=== PATIENT | female | born 1935 | race African-American/Black ===

== ENCOUNTER 2018-11-09 18:02 | Inpatient (IN) | payer MEDICARE, MEDICAID ==
[~2018-11-09] VITALS: Ht 162.6 cm; Wt 41.3 kg
--- NOTE | 2018-11-09 18:10 | NUR ---
ED Nurse Note: Patient brought in to ER by ambulance from [facility] due to respiratory distress. per EMS, pt arrived at [facility] from [facility] 1 hour ago and pt had respiratory distress at SNF which was O2 sat 88% and labored breathing. pt aao x1 and bedbound. Lt lower qudrant G-tube and Rt upper chest dialysis catheter and Lt upper arm PICC line with 3 lumen noted. skin will be checked after orders carried out.
[2018-11-09 18:25] VITALS: BP 103/76
[2018-11-09] MEDS ORDERED: Albuterol/Ipratropium 3ml neb HHN ONE (18:30)
--- NOTE | 2018-11-09 18:30 | NUR ---
ED Nurse Note: Called Olivia Martin for POLST - reported that "there is no POLST."
--- NOTE | 2018-11-09 18:33 | Emergency Room Report ---
History of Present Illness General Chief Complaint: Dyspnea/Respdistress Source: Patient, Medical Record, EMS Present Illness HPI Patient was recently discharged from the hospital. She was back at the [facility] facility for one hour and her oxygen saturation was 89% at that time. Paramedics were called and she was transported here. The patient does complain about chest pain and some shortness of breath. She's a variable historian. She denies any abdominal pain. She states she does not make urine because she is on dialysis at this time. She denies headache or weakness. Apparently the patient is a DO NOT RESUSCITATE status at this time. However, after discussion with Dr. Araya, he states patient is OK to intubate. Recent several month hospitalization at [facility]. Records unavailable Allergies: Coded Allergies: No Known Allergies (Unverified , 11/09/18) Patient History Limited by: medical condition Past Medical History: see triage record Past Surgical History: other - Vascath Social History Narrative SNF Reviewed Nursing Documentation: PMH: Agreed; PSxH: Agreed Nursing Documentation-PMH Hx Hypertension: Yes Hx Diabetes: Yes - esrd Hx Dialysis: Yes - encephalopathy Hx Cerebrovascular Accident: Yes - dysphagia Hx Seizures: Yes Review of Systems All Other Systems: limited Physical Exam Vital Signs Date Time Temp Pulse Resp B/P (MAP) Pulse Ox O2 Delivery O2 Flow Rate FiO2 11/09/18 17:55 97.5 86 24 96 Nasal Cannula Sp02 EP Interpretation: reviewed, abnormal - intepreted as low by me General Appearance: alert, moderate distress, thin, Chronically Ill Head: normocephalic, atraumatic Eyes: bilateral eye other - dysconjugate gaze with opacities bilat ENT: moist mucus membranes Neck: supple Respiratory: no wheezing, respiratory distress, decreased breath sounds, accessory muscle use, rales, other - Vascular access R Cardiovascular #1: regular rate, rhythm, JVD, edema - trace bilat LE Cardiovascular #2: 2+ radial (R) Gastrointestinal: normal inspection, non tender, no mass, non-distended, decreased bowel sounds Musculoskeletal: back normal, normal range of motion, no calf tenderness Neurologic: alert, motor weakness - generalized, oriented - X2 Psychiatric: depressed affect Skin: normal inspection, warm/dry Procedures Critical Care Time Critical Care Time Total Critical Care Time: 30 min bedside evaluation and treatment excludes procedures (EKG). Reason for critical care: Respiratory failure, repeat evaluations, discussion with primary doctors, anemia Possible complications: hypotension, hypertension, OH, shock, arrhythmias, metabolic acidosis, end organ damage, respiratory failure. Interventions: BiPAP, repeat evaluations, discussion with physicians about level of care, discussion regarding blood transfusions Course: Patient presented with hypoxia and respiratory distress. Placed on BiPAP. Breathing treatment administered. Improvement with this with respiratory work. Discussion with several doctors regarding admission. Patient improved on BiPAP. Blood gas determines patient not needing intubation immediately. Discussion of the need for emergent dialysis. Holding blood transfusions until dialysis as pulmonary edema felt to be primary source of dyspnea. Patient improved. Consultations: nursing staff, EMS, PMDs, respiratory therapy Performed by: Dr. Uribe Tolerated well condition = critical Medical Decision Making Diagnostic Impression: Primary Impression: Respiratory distress Additional Impressions: Hypoxia ESRD (end stage renal disease) on dialysis Pulmonary edema Qualified Codes: J81.0 - Acute pulmonary edema Pleural effusion, left Anemia Qualified Codes: N18.6 - End stage renal disease; D63.1 - Anemia in chronic kidney disease; Z99.2 - Dependence on renal dialysis ER Course Patient presents with hypoxia and increased work with breathing. Differential includes acute myocardial infarction, pneumonia, COPD exacerbation, pulmonary edema from renal failure amongst others. The patient needs to be on BiPAP. In addition she'll have evaluation with EKG, chest x-ray and labs including blood cultures and lactate. Because of the renal failure her vitals are stable at the moment and she does not need to have fluid resuscitation. She will also receive a DuoNeb treatment at this time. We will evaluate carefully whether the patient needs antibiotics. EKG without injury. Chest x-ray pulmonary edema with large left-sided effusion and cardiomegaly. Labs with significant anemia. Renal failure without hyperkalemia. Patient improved on BiPAP but still with work of breathing. Discussion with dialysis doctor and admitting physician. The latter states that she is able to be intubated if necessary. Therefore blood gases obtained.. Blood gas reveals patient with mild acidosis, both respiratory and metabolic. Respiratory difficulty felt to be due to pulmonary edema. Blood transfusions held as the most likely with make this condition worse. Although the patient has mild leukocytosis she is afebrile at this time. There is no productive cough. There is no infectious etiology identified. Antibiotics are not administered at this time. Patient with less respiratory difficulty on BiPAP. She is vocalizing and responsive. At this time intubation is not indicated. Patient admitted to stepdown unit. Laboratory Tests Test 11/09/18 18:55 11/09/18 19:05 11/09/18 21:52 White Blood Count 11.9 K/UL (4.8-10.8) H Red Blood Count 2.73 M/UL (4.20-5.40) L Hemoglobin 6.8 G/DL (12.0-16.0) *L Hematocrit 22.0 % (37.0-47.0) L Mean Corpuscular Volume 80 FL (80-99) Mean Corpuscular Hemoglobin 24.9 PG (27.0-31.0) L Mean Corpuscular Hemoglobin Concent 30.9 G/DL (32.0-36.0) L Red Cell Distribution Width 17.3 % (11.6-14.8) H Platelet Count 414 K/UL (150-450) Mean Platelet Volume 6.5 FL (6.5-10.1) Neutrophils (%) (Auto) % (45.0-75.0) Lymphocytes (%) (Auto) % (20.0-45.0) Monocytes (%) (Auto) % (1.0-10.0) Eosinophils (%) (Auto) % (0.0-3.0) Basophils (%) (Auto) % (0.0-2.0) Differential Total Cells Counted 100 Neutrophils % (Manual) 80 % (45-75) H Lymphocytes % (Manual) 8 % (20-45) L Monocytes % (Manual) 8 % (1-10) Eosinophils % (Manual) 1 % (0-3) Basophils % (Manual) 3 % (0-2) H Band Neutrophils 0 % (0-8) Nucleated Red Blood Cells 1 /100 WBC Platelet Estimate Adequate Platelet Morphology Normal Polychromasia 1+ Hypochromasia 2+ Anisocytosis 1+ Microcytosis 1+ Sodium Level 129 MMOL/L (136-145) L Potassium Level 4.6 MMOL/L (3.5-5.1) Chloride Level 93 MMOL/L (98-107) L Carbon Dioxide Level 24 MMOL/L (21-32) Anion Gap 12 mmol/L (5-15) Blood Urea Nitrogen 83 mg/dL (7-18) H Creatinine 2.7 MG/DL (0.55-1.30) H Estimate Glomerular Filtration Rate mL/min (>60) Glucose Level 111 MG/DL (74-106) H Lactic Acid Level 0.70 mmol/L (0.4-2.0) Calcium Level 9.8 MG/DL (8.5-10.1) Magnesium Level 2.6 MG/DL (1.8-2.4) H Total Bilirubin 0.2 MG/DL (0.2-1.0) Aspartate Amino Transferase (AST) 17 U/L (15-37) Alanine Aminotransferase (ALT) 24 U/L (12-78) Alkaline Phosphatase 420 U/L (46-116) H Total Creatine Kinase 34 U/L (26-308) Troponin I 0.000 ng/mL (0.000-0.056) Pro-B-Type Natriuretic Peptide 85377 pg/mL (0-125) H Total Protein 8.2 G/DL (6.4-8.2) Albumin 2.5 G/DL (3.4-5.0) L Globulin 5.7 g/dL Albumin/Globulin Ratio 0.4 (1.0-2.7) L Prothrombin Time 10.4 SEC (9.30-11.50) Prothrombin Time INR 1.0 (0.9-1.1) PTT 31 SEC (23-33) Arterial Blood pH 7.308 (7.350-7.450) Arterial Blood Partial Pressure CO2 44.5 mmHg (35.0-45.0) Arterial Blood Partial Pressure O2 95.5 mmHg (75.0-100.0) Arterial Blood HCO3 21.8 mmol/L (22.0-26.0) L Arterial Blood Oxygen Saturation 96.9 % (95-100) Arterial Blood Base Excess -4.2 (-2-2) L Cal Test Positive EKG Diagnostic Results Rate: normal Rhythm: NSR ST Segments: no acute changes - LAE, LVH, LAD Rhythm Strip Diag. Results EP Interpretation: yes Rhythm: NSR, no PVC's, no ectopy Chest X-Ray Diagnostic Results Chest X-Ray Diagnostic Results : Chest X-Ray Ordered: Yes # of Views/Limited/Complete: 1 View Indication: Shortness of Breath EP Interpretation: Yes Interpretation: no pneumothorax, other - L effusion, pulm edema, R vas cath Last Vital Signs Date Time Temp Pulse Resp B/P (MAP) Pulse Ox O2 Delivery O2 Flow Rate FiO2 11/10/18 01:10 74 20 100 Facial 30 11/10/18 00:00 97.5 126/65 (85) Status: improved Disposition: ADMITTED INPATIENT Condition: Serious Petey Uribe MD November 09, 2018 18:33
--- NOTE | 2018-11-09 18:39 | NUR ---
ED Nurse Note: Bipap applied per ERMD's order by RT.
--- NOTE | 2018-11-09 18:49 | NUR ---
RESPIRATORY NOTE: Called to ED to place this pt on BiPAP per MD Rony. Pt awake/needed reinforcement to follow commands. Pt WOB is increased, vitals w/in normal limits, spO2 98% on RA. Pt now on BiPAP 15/5, backup rate 14, 30%. Pt on a Facial mask, skin intact, no redness/breakdowns prior to placing mask. Foam tape applied on pt's nosebridge/cheeks/chin to prevent any mask irritations. B/S marisol. rales/rhonchi, nonproductive cough. BiPAP plugged into red outlet. Pt currently getting breathing tx. Pt tolerating tx well. Will continue to monitor pt.
[2018-11-09 19:06] LABS: MEAN CORPUSCULAR VOLUME 80 FL (80-99); PLATELET COUNT 414 K/UL (150-450); RED BLOOD COUNT 2.73 M/UL (4.20-5.40); RED CELL DISTRIBUTION WIDTH 17.3 % (11.6-14.8); WHITE BLOOD COUNT 11.9 K/UL (4.8-10.8)
[2018-11-09 19:10] LABS: HEMOGLOBIN 6.8 G/DL (12.0-16.0)
[2018-11-09 19:18] LABS: ANION GAP 12 mmol/L (5-15); BLOOD UREA NITROGEN 83 mg/dL (7-18); CALCIUM 9.8 MG/DL (8.5-10.1); CARBON DIOXIDE 24 MMOL/L (21-32); CHLORIDE 93 MMOL/L (98-107); CREATININE 2.7 MG/DL (0.55-1.30); POTASSIUM 4.6 MMOL/L (3.5-5.1); SODIUM 129 MMOL/L (136-145)
--- NOTE | 2018-11-09 19:22 | NUR ---
HAND-OFF: Report given to CORNELL Alcantara. Skin check and urin sample collect were endorsed.
[2018-11-09 19:29] LABS: ALANINE AMINOTRANSFERASE 24 U/L (12-78); ALBUMIN 2.5 G/DL (3.4-5.0); ALBUMIN/GLOBULIN RATIO 0.4 (1.0-2.7); ALKALINE PHOSPHATASE 420 U/L (46-116); ASPARTATE AMINO TRANSFERASE 17 U/L (15-37); BILIRUBIN,TOTAL 0.2 MG/DL (0.2-1.0); CREATINE KINASE 34 U/L (26-308)
--- NOTE | 2018-11-09 19:30 | NUR ---
ED Nurse Note: RECIEVED REPORT FROM AM NURSE TO RESUME CARE, PT IN BED RESTING QUIETLY, AWKE, NON-COMPREHENSIBLE SOUNDS MADE, ON CARDIAC MONITORING AND BIPAP, PT IS L RAFAEL IN CONTRACTED LIKE POSITION, WILL RESUME CARE ORDERED AND PREAPER FOR HOSPITAL ADMISSION.
[2018-11-09 20:00] VITALS: BP 115/47
--- NOTE | 2018-11-09 21:00 | NUR ---
ED Nurse Note: PT CONTINUES TO REST IN BED, PT RE-POSITIONED AND TURNED WITH PILLOWS, PT NOTED WITH BEDSORES ON RIGHT INNER FOOT AREA, AND SACRYL AREA, PHOTOS TAKEN, MD NOTIFIED, SWABS FOR ADMISSION DONE, WILL CONTINUE TO MONITOR WHILE WAITING FOR ROOM FOR ADMISSION.
--- NOTE | 2018-11-09 21:45 | NUR ---
ED Nurse Note: RESPIRATORY AT BEDSIDE COMPLETING ABG, WILL SEND TO FLOOR BED WHEN DONE AND MD AGREES ABG RESULTS ARE OK, PT TOLEARATING BIPAP WELL, O2 SAT=99% ON RA.
[2018-11-09] MEDS ORDERED: Piperacillin/Tazobactam 3.375 GM in NS 110 ML IVPB SCH (22:00)
--- NOTE | 2018-11-09 22:35 | NUR ---
ED Nurse Note: Called Olivia Martin for med record, in order to do med recon.
--- NOTE | 2018-11-09 23:10 | NUR ---
NURSE NOTES: Received report over the phone from MaricruzER nurse.Patient stable to transfer to the floor,no s/s of pain,no respiratory distress at this moment,SR on registered nurse cardiac telemetry,tolerated BiPAP setting 15/5 FiO2 30% well,GT clumped,BS active in all quadrants,wound pictures done and uploaded,IV on YESSICA PICC asymptomatic,intact,last dressing changed 11/05/18,Permacath in R chest for dialyses.Has order for blood transfusion,held until dialysis as per MD order.ER provided breathing treatment,Sat O2 95%.Waiting patient on a floor.
--- NOTE | 2018-11-09 23:20 | NUR ---
NURSE NOTES: Patient transferred to the floor by vanesa,no respiratory distress noted,belongings list signed for no belongings
--- NOTE | 2018-11-09 23:30 | NUR ---
NURSE NOTES: Called and left massage to confirm blood transfusion order.Waiting for respond,charge nurse aware.
[2018-11-10] VITALS: BP 126/65
[2018-11-10] MEDS ORDERED: Vancomycin 1.5gm Premix IVPB ONE
--- NOTE | 2018-11-10 00:01 | NUR ---
NURSE NOTES: Spoke with Mariaelena at [facility] dialysis center to schedule HD for patient today (11/10) per Dr. Alcazar's orders.
[2018-11-10] MEDS ORDERED: [UNRECOGNIZED DRUG - OTHER] IVPB (00:02)
[2018-11-10] MEDS ORDERED: AMLODIPINE BESY10 MG GT (00:02)
[2018-11-10] MEDS ORDERED: PROTONIX40 M1 IVP (00:02)
[2018-11-10] MEDS ORDERED: ACETYLCYST100 MG/1 M INH (00:02)
[2018-11-10] MEDS ORDERED: CALCITRIOL1 MCG/1 ML GT (00:02)
[2018-11-10] MEDS ORDERED: SENNA8.6 M2 GT (00:02)
[2018-11-10] MEDS ORDERED: LEVOFLOXACIN750 MG GT (00:02)
[2018-11-10] MEDS ORDERED: ALBUTEROL2.5 MG/3 M INH (00:02)
[2018-11-10] MEDS ORDERED: VITAMIN D1000 UNI1 GT (00:02)
[2018-11-10] MEDS ORDERED: LEVETIRACETAM500 MG IVPB (00:02)
[2018-11-10] MEDS ORDERED: ASPIR 8181 MG ORAL (00:02)
[2018-11-10] MEDS ORDERED: ACETAMINOPHEN325 M1 ORAL (00:02)
[2018-11-10] MEDS ORDERED: VORICONAZOLE200 MG GT (00:02)
[2018-11-10] MEDS ORDERED: ARANESP40 MCG/0.4 SUBQ (00:02)
[2018-11-10] MEDS ORDERED: CARVEDILOL12.5 MG GT (00:02)
[2018-11-10] MEDS ORDERED: METRONIDAZOLE500 MG GT (00:02)
[2018-11-10] MEDS ORDERED: LISINOPRIL10 MG GT (00:02)
[2018-11-10] MEDS ORDERED: HEPARIN SO5000 UNIT2 SUBQ (00:02)
[2018-11-10] MEDS ORDERED: LOSARTAN POTASS50 MG GT (00:02)
[2018-11-10] MEDS ORDERED: FERROUS SULFAT325 MG GT (00:02)
[2018-11-10] MEDS ORDERED: THERA GT (00:02)
[2018-11-10] MEDS ORDERED: IPRATROPIU0.2 MG/1 M HHN (00:02)
[2018-11-10] MEDS ORDERED: DOCUSATE SODIU100 MG ORAL (00:02)
--- NOTE | 2018-11-10 01:16 | NUR ---
NURSE NOTES: 1 unit PRBC is ready for machine operator hop picker. Per ED Dr. Uribe to hold blood transfusion until after HD; awaiting Dr. Araya's confirmation. Blood unit is available for the next 72 hours.
[2018-11-10] MEDS: Zosyn 2.25 gm in D5W 55ml IV SCH ×3 (01:19→13:37)
[2018-11-10 04:00] VITALS: BP 109/54
--- NOTE | 2018-11-10 04:00 | NUR ---
NURSE NOTES: INC nurse came to start dialysis.Will continue to monitor patient.
[2018-11-10 05:18] LABS: ANION GAP 10 mmol/L (5-15); BLOOD UREA NITROGEN 87 mg/dL (7-18); CALCIUM 9.5 MG/DL (8.5-10.1); CARBON DIOXIDE 25 MMOL/L (21-32); CHLORIDE 93 MMOL/L (98-107); CREATININE 2.9 MG/DL (0.55-1.30); POTASSIUM 4.7 MMOL/L (3.5-5.1); SODIUM 128 MMOL/L (136-145)
[2018-11-10 05:28] LABS: ALANINE AMINOTRANSFERASE 22 U/L (12-78); ALBUMIN 2.4 G/DL (3.4-5.0); ALBUMIN/GLOBULIN RATIO 0.5 (1.0-2.7); ALKALINE PHOSPHATASE 365 U/L (46-116); ASPARTATE AMINO TRANSFERASE 15 U/L (15-37); BILIRUBIN,TOTAL 0.3 MG/DL (0.2-1.0)
[2018-11-10] MEDS ORDERED: Heparin Sod 1000 units/ml 10ml IV PRN (06:00)
--- NOTE | 2018-11-10 06:30 | NUR ---
NURSE NOTES: Dialysis is done,patient tolerated well, 1L taken out
--- NOTE | 2018-11-10 07:04 | Nephrology Progress Note ---
Assessment/Plan Assessment dicctated, serial hd Objective Objective Last 24 Hour Vital Signs Date Time Temp Pulse Resp B/P (MAP) Pulse Ox O2 Delivery O2 Flow Rate FiO2 11/10/18 05:13 75 22 100 Facial 30 11/10/18 04:00 97.7 70 27 109/54 (72) 100 11/10/18 04:00 30 11/10/18 04:00 Bi-pap 11/10/18 03:42 69 11/10/18 03:04 68 25 100 Facial 30 11/10/18 01:10 74 20 100 Facial 30 11/10/18 00:00 Bi-pap 11/10/18 00:00 97.5 73 20 126/65 (85) 100 11/10/18 00:00 30 11/09/18 23:36 72 11/09/18 23:00 98.1 29 115/47 100 Bi-pap 30 11/09/18 23:00 Bi-pap 11/09/18 22:41 71 29 100 Facial 30 11/09/18 20:32 72 35 100 Facial 30 11/09/18 20:00 98.1 75 23 115/47 100 Bi-pap 30 11/09/18 18:57 75 25 100 Bi-pap 30 11/09/18 18:45 77 25 100 Bi-pap 30 11/09/18 18:42 30 11/09/18 18:30 76 29 Bi-pap 30 11/09/18 18:30 76 29 100 Facial 30 11/09/18 18:25 97.5 87 24 103/76 97 Room Air 11/09/18 18:25 84 19 Room Air 11/09/18 17:55 97.5 86 24 96 Nasal Cannula Intake and Output 11/09/18 11/10/18 19:00 07:00 Intake Total 0 ml 55 ml Output Total 1000 ml Balance 0 ml -945 ml Intake Oral 0 ml IV Total 55 ml Output Hemodialysis UF 1000 ml Laboratory Tests 11/09/18 18:55: White Blood Count 11.9H, Red Blood Count 2.73L, Hemoglobin 6.8*L, Hematocrit 22.0L, Mean Corpuscular Volume 80, Mean Corpuscular Hemoglobin 24.9L, Mean Corpuscular Hemoglobin Concent 30.9L, Red Cell Distribution Width 17.3H, Platelet Count 414, Mean Platelet Volume 6.5, Neutrophils (%) (Auto) , Lymphocytes (%) (Auto) , Monocytes (%) (Auto) , Eosinophils (%) (Auto) , Basophils (%) (Auto) , Differential Total Cells Counted 100, Neutrophils % ( Manual) 80H, Lymphocytes % (Manual) 8L, Monocytes % (Manual) 8, Eosinophils % ( Manual) 1, Basophils % (Manual) 3H, Band Neutrophils 0, Nucleated Red Blood Cells 1, Platelet Estimate Adequate, Platelet Morphology Normal, Polychromasia 1 +, Hypochromasia 2+, Anisocytosis 1+, Microcytosis 1+, Sodium Level 129L, Potassium Level 4.6, Chloride Level 93L, Carbon Dioxide Level 24, Anion Gap 12, Blood Urea Nitrogen 83H, Creatinine 2.7H, Estimat Glomerular Filtration Rate , Glucose Level 111H, Lactic Acid Level 0.70, Calcium Level 9.8, Magnesium Level 2.6H, Total Bilirubin 0.2, Aspartate Amino Transf (AST/SGOT) 17, Alanine Aminotransferase (ALT/SGPT) 24, Alkaline Phosphatase 420H, Total Creatine Kinase 34, Troponin I 0.000, Pro-B-Type Natriuretic Peptide 76905U, Total Protein 8.2, Albumin 2.5L, Globulin 5.7, Albumin/Globulin Ratio 0.4L 11/09/18 19:05: Prothrombin Time 10.4, Prothromb Time International Ratio 1.0, Activated Partial Thromboplast Time 31 11/09/18 21:52: Arterial Blood pH 7.308L, Arterial Blood Partial Pressure CO2 44.5, Arterial Blood Partial Pressure O2 95.5, Arterial Blood HCO3 21.8L, Arterial Blood Oxygen Saturation 96.9, Arterial Blood Base Excess -4.2L, Cal Test Positive 11/10/18 04:00: Sodium Level 128L, Potassium Level 4.7, Chloride Level 93L, Carbon Dioxide Level 25, Anion Gap 10, Blood Urea Nitrogen 87H, Creatinine 2.9H, Estimat Glomerular Filtration Rate , Glucose Level 140H, Calcium Level 9.5, Total Bilirubin 0.3, Aspartate Amino Transf (AST/SGOT) 15, Alanine Aminotransferase ( ALT/SGPT) 22, Alkaline Phosphatase 365H, Total Protein 7.7, Albumin 2.4L, Globulin 5.3, Albumin/Globulin Ratio 0.5L Height (Feet): 5 Height (Inches): 4.00 Weight (Pounds): 91 Cody Alcazar MD November 10, 2018 07:04
[2018-11-10 07:25] LABS: MEAN CORPUSCULAR VOLUME 83 FL (80-99); PLATELET COUNT 439 K/UL (150-450); RED BLOOD COUNT 2.66 M/UL (4.20-5.40); RED CELL DISTRIBUTION WIDTH 18.3 % (11.6-14.8); WHITE BLOOD COUNT 9.8 K/UL (4.8-10.8)
--- NOTE | 2018-11-10 07:25 | NUR ---
HAND-OFF: Report given to CORNELL Davidson.Patient stable,sleeping.
--- NOTE | 2018-11-10 07:26 | NUR ---
NURSE NOTES: Received patient in bed. In no apparent distress. On bipap. No facial grimace. sinus rhythm in rn cardiac rehab. Will continue plan of care.
[2018-11-10 07:27] LABS: HEMOGLOBIN 6.5 G/DL (12.0-16.0)
--- NOTE | 2018-11-10 07:51 | NUR ---
RESPIRATORY NOTE: received pt on bipap 15/5 fio2 30% with partial facial mask and saturation of 100%. no redness or skin tears visible around facial area or neck. pt in no apparent resp distress at this time. will attempt to wean pt off bipap and cont to monitor.
[2018-11-10 08:00] VITALS: BP 121/54
--- NOTE | 2018-11-10 08:18 | NUR ---
CASE MANAGEMENT:REVIEW 83 YR OLD FEMALE BIBA FROM [facility] CC: SOB AND LOW SATURATION 88% ON RA. ESRD ON HD PMH: PEG. ENCEPHALOPATHY SI: RESP DISTRESS. ANEMIA. HYPOXIA 97.6 86 24 103/76 100% ON BIPAP WBC+11.9 H.H-6.8/22.0 NA-129 BUN+83 CR+2.7 IS: DUONEB HHN BLOOD CX CHEST XRAY URINE REFLEX : TO STEP DOWN UNIT IS: TRANSFUSE 1 UNIT PRBC IV ZOSYN Q8HRS IV LASIX QD
--- NOTE | 2018-11-10 09:35 | NUR ---
*-* NO INSURANCE INFORMATION IN THE BAR TO SEND CLINICALS OR REVIEWS *-*
--- NOTE | 2018-11-10 11:04 | Diagnostic Imaging Report ---
Indication: Dyspnea Comparison: None A single view chest radiograph was obtained. Findings: Pulmonary edema with groundglass opacities, prominent vascularity noted. Hazy basilar opacities consistent with pleural effusions. Right permacath tip projected over the right atrium. Left PICC line with tip projected over the SVC noted. Bones are osteopenic. IMPRESSION: Pulmonary edema. Bilateral pleural effusions. Lines satisfactory
--- NOTE | 2018-11-10 11:20 | NUR ---
RD ASSESSMENT & RECOMMENDATIONS SEE CARE ACTIVITY FOR COMPLETE ASSESSMENT DAILY ESTIMATED NEEDS: Needs based on Wound, Underweight, HD/ 41.1kg 35-40 kcals/kg 2428-8134 total kcals 1.5-2.0 g protein/kg 61-82 g total protein 20-22 mL/kg 820-902 total fluid mLs NUTRITION DIAGNOSIS: * Increased kcal/prot needs R/T wound healing, for wt gain, pulmonary status, renal dysfunction as evidenced by pt admitted w/ stage 4 wuond @ rt hallux, DTI wounds @ BL heels and sacrum, severely underweight w/ 75% IBW, pt on BIPAP, ESRD dx, on HD. * Swallowing difficulty R/T dysphagia as evidenced by pt is PEG dep. CURRENT TF:Nepro @ 30ml/hr x 24 hrs ENTERAL NUTRITION RECOMMENDATIONS: Nepro @ 35ml/hr x 24 hrs to provide 840ml, 1512kcal, 68g prot, 610ml free water * Increase goal rate to 35ml/hr x 24 hrs * HOB over 30 degrees/ water flush per MD * Add Jer 1pkt BID for wound healing ADDITIONAL RECOMMENDATIONS: * WOUND HEALING: add Jer 1pkt BID * Monitor lytes closely- ESRD dx, on TF, on lasix * Daily wt monitoring on calibrated bedscale wt * Monitor BGs closely w/ TF
[2018-11-10 12:00] VITALS: BP 127/76
--- NOTE | 2018-11-10 13:06 | NUR ---
SWALLOW/SPEECH THERAPY NOTE: REFERRED BY DR LIPSCOMB FOR SWALLOW EVAL, SEE FULL REPORT IN ST CARE ACTIVITY SECTION. DYSPHAGIA RISK FACTORS FOR THIS 83 Y.O. AA FEMALE: ACUTE RESP FAILURE, STILL ON BIPAP AND NOT READY FOR NC. RR HIGH 32, O2 SATS 100 Fi02 30. AT SNF HAD SOB AND RESP DISTRESS LOW 02 SATS. CURRENT CXR PULMONARY EDEMA BILATERAL PLEURAL EFFUSIONS. CT BRAIN JUL 2018: NEGATIVE ACUTE FINDINGS, CHRONIC INVOLUTIONAL AND SMALL VESSEL ISCHEMIC CHANGES OF BRAIN. 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 08/03-08/23/18 TRACKING BUT NOT INTERACTING. H/O DYSPHAGIA (NOT VERY SPECIFIC NO REPORT BY OIL REFINER) PEG PLACED 09/03/18. NO POLST NOR ADVANCE DIRECTIVE REGARDING TF BUT HAS PEG. CURRENTLY NPO AND WILL START PEG FEEDINGS. ALERT ON BIPAP NOT READY FOR NC, POOR FOLLOWING ORAL COMMANDS, EDENTULOUS. INITIAL IMPRESSIONS: HIGH RISK FOR PERSISTENT AND SIGNIFICANT DYSPHAGIA HIGH RISK FOR SILENT ASPIRATION (H/O CVA AND INTUBATION) QUESTIONABLE OROMOTOR STATUS, POOR FOLLOWING COMMANDS AND SPEECH IS VERY UNINTELLIGIBLE. EDENTULOUS. RECOMMENDATIONS: CONTINUE WITH NO PO AT THIS TIME AND CONTINUE WITH ORAL CARE (SEE POSTED SIGN) AND INITIATE PEG FEEDINGS FOR NOW. COMPLETED MOD BARIUM SWALLOW STUDY WHEN ABLE TO BE OFF BIPAP TO FURTHER ASSESS SWALLOW, DETERMINE SILENT ASP RISK/ETIOLOGY, AND ATTEMPT TRIAL TECHNIQUES. DYSPHAGIA MANAGEMENT AND TX AND COG-COM EVAL/TX EDUCATED/TRAINED STAFF FOR ORAL CARE. D/W RN (BARBER) WHO WILL START PEG FEEDINGS AND DR. LIPSCOMB.
--- NOTE | 2018-11-10 13:46 | General Progress Note ---
Assessment/Plan Problem List: (1) Pulmonary edema ICD Codes: J81.1 - Chronic pulmonary edema SNOMED: 03975028 Qualifiers: Qualified Codes: J81.0 - Acute pulmonary edema (2) ESRD (end stage renal disease) on dialysis ICD Codes: N18.6 - End stage renal disease; Z99.2 - Dependence on renal dialysis SNOMED: 082625110 (3) Pleural effusion, left ICD Codes: J90 - Pleural effusion, not elsewhere classified; Z99.2 - Dependence on renal dialysis SNOMED: 80614072 (4) Respiratory distress ICD Codes: R06.03 - Acute respiratory distress SNOMED: 588030637 (5) Hypoxia ICD Codes: R09.02 - Hypoxemia SNOMED: 290267932 Status: stable Assessment/Plan: HD with UF abx transfuse prbcs- d/w with dtr risk and benefits. wishes to proceed with transfusion. Pt needs emergent transfusion. has life threatening anemia. Subjective ROS Limited/Unobtainable: Yes Constitutional: Reports: no symptoms HEENT: Reports: no symptoms Cardiovascular: Reports: no symptoms Respiratory: Reports: shortness of breath Gastrointestinal/Abdominal: Reports: difficulty swallowing Genitourinary: Reports: no symptoms Neurologic/Psychiatric: Reports: pre-existing deficit Endocrine: Reports: no symptoms Hematologic/Lymphatic: Reports: no symptoms Allergies: Coded Allergies: CODEINE (Verified Allergy, Unknown, 11/10/18) All Systems: reviewed and negative except above Subjective anemic. no bleeding. on bipap. awake but nonverbal Objective Last 24 Hour Vital Signs Date Time Temp Pulse Resp B/P (MAP) Pulse Ox O2 Delivery O2 Flow Rate FiO2 11/10/18 12:43 100 32 100 Facial 30 11/10/18 12:11 97 11/10/18 12:00 Bi-pap 11/10/18 12:00 97.7 92 38 127/76 (93) 100 11/10/18 12:00 30 11/10/18 10:45 88 32 100 Facial 30 11/10/18 08:56 97 37 100 Facial 30 11/10/18 08:00 Bi-pap 11/10/18 08:00 30 11/10/18 08:00 98.1 82 26 121/54 (76) 100 11/10/18 07:48 84 26 100 Facial 30 11/10/18 07:28 83 11/10/18 05:13 75 22 100 Facial 30 11/10/18 04:00 97.7 70 27 109/54 (72) 100 11/10/18 04:00 30 11/10/18 04:00 Bi-pap 11/10/18 03:42 69 11/10/18 03:04 68 25 100 Facial 30 11/10/18 01:10 74 20 100 Facial 30 11/10/18 00:00 Bi-pap 11/10/18 00:00 97.5 73 20 126/65 (85) 100 11/10/18 00:00 30 11/09/18 23:36 72 11/09/18 23:00 98.1 29 115/47 100 Bi-pap 30 11/09/18 23:00 Bi-pap 11/09/18 22:41 71 29 100 Facial 30 11/09/18 20:32 72 35 100 Facial 30 11/09/18 20:00 98.1 75 23 115/47 100 Bi-pap 30 11/09/18 18:57 75 25 100 Bi-pap 30 11/09/18 18:45 77 25 100 Bi-pap 30 11/09/18 18:42 30 11/09/18 18:30 76 29 Bi-pap 30 11/09/18 18:30 76 29 100 Facial 30 11/09/18 18:25 97.5 87 24 103/76 97 Room Air 11/09/18 18:25 84 19 Room Air 11/09/18 17:55 97.5 86 24 96 Nasal Cannula Intake and Output 11/09/18 11/10/18 18:59 06:59 Intake Total 0 ml 55 ml Output Total 1000 ml Balance 0 ml -945 ml Intake Oral 0 ml IV Total 55 ml Output Hemodialysis UF 1000 ml Laboratory Tests 11/09/18 18:55: White Blood Count 11.9H, Red Blood Count 2.73L, Hemoglobin 6.8*L, Hematocrit 22.0L, Mean Corpuscular Volume 80, Mean Corpuscular Hemoglobin 24.9L, Mean Corpuscular Hemoglobin Concent 30.9L, Red Cell Distribution Width 17.3H, Platelet Count 414, Mean Platelet Volume 6.5, Neutrophils (%) (Auto) , Lymphocytes (%) (Auto) , Monocytes (%) (Auto) , Eosinophils (%) (Auto) , Basophils (%) (Auto) , Differential Total Cells Counted 100, Neutrophils % ( Manual) 80H, Lymphocytes % (Manual) 8L, Monocytes % (Manual) 8, Eosinophils % ( Manual) 1, Basophils % (Manual) 3H, Band Neutrophils 0, Nucleated Red Blood Cells 1, Platelet Estimate Adequate, Platelet Morphology Normal, Polychromasia 1 +, Hypochromasia 2+, Anisocytosis 1+, Microcytosis 1+, Sodium Level 129L, Potassium Level 4.6, Chloride Level 93L, Carbon Dioxide Level 24, Anion Gap 12, Blood Urea Nitrogen 83H, Creatinine 2.7H, Estimat Glomerular Filtration Rate , Glucose Level 111H, Lactic Acid Level 0.70, Calcium Level 9.8, Magnesium Level 2.6H, Total Bilirubin 0.2, Aspartate Amino Transf (AST/SGOT) 17, Alanine Aminotransferase (ALT/SGPT) 24, Alkaline Phosphatase 420H, Total Creatine Kinase 34, Troponin I 0.000, Pro-B-Type Natriuretic Peptide 81354N, Total Protein 8.2, Albumin 2.5L, Globulin 5.7, Albumin/Globulin Ratio 0.4L 11/09/18 19:05: Prothrombin Time 10.4, Prothromb Time International Ratio 1.0, Activated Partial Thromboplast Time 31 11/09/18 21:52: Arterial Blood pH 7.308L, Arterial Blood Partial Pressure CO2 44.5, Arterial Blood Partial Pressure O2 95.5, Arterial Blood HCO3 21.8L, Arterial Blood Oxygen Saturation 96.9, Arterial Blood Base Excess -4.2L, Cal Test Positive 11/10/18 04:00: White Blood Count 9.8, Red Blood Count 2.66L, Hemoglobin 6.5*L, Hematocrit 22.0L , Mean Corpuscular Volume 83, Mean Corpuscular Hemoglobin 24.5L, Mean Corpuscular Hemoglobin Concent 29.5L, Red Cell Distribution Width 18.3H, Platelet Count 439, Mean Platelet Volume 7.2, Neutrophils (%) (Auto) , Lymphocytes (%) (Auto) , Monocytes (%) (Auto) , Eosinophils (%) (Auto) , Basophils (%) (Auto) , Differential Total Cells Counted 100, Neutrophils % ( Manual) 72, Lymphocytes % (Manual) 20, Monocytes % (Manual) 7, Eosinophils % ( Manual) 1, Basophils % (Manual) 0, Band Neutrophils 0, Platelet Estimate Adequate, Platelet Morphology Normal, Polychromasia 1+, Hypochromasia 2+, Anisocytosis 1+, Sodium Level 128L, Potassium Level 4.7, Chloride Level 93L, Carbon Dioxide Level 25, Anion Gap 10, Blood Urea Nitrogen 87H, Creatinine 2.9H , Estimat Glomerular Filtration Rate , Glucose Level 140H, Calcium Level 9.5, Total Bilirubin 0.3, Aspartate Amino Transf (AST/SGOT) 15, Alanine Aminotransferase (ALT/SGPT) 22, Alkaline Phosphatase 365H, Total Protein 7.7, Albumin 2.4L, Globulin 5.3, Albumin/Globulin Ratio 0.5L Height (Feet): 5 Height (Inches): 4.00 Weight (Pounds): 91 General Appearance: WD/WN Neck: supple Cardiovascular: normal rate Respiratory/Chest: decreased breath sounds Abdomen: normal bowel sounds, non tender, soft, no organomegaly Neurologic: disoriented, unresponsive, aphasia Rodrick Araya MD November 10, 2018 13:46
--- NOTE | 2018-11-10 14:17 | Diagnostic Imaging Report ---
APPROVED REPORT CPT Code: 47302 Present Symptoms Shortness of breath RIGHT LEG: Venous imaging reveals a patent deep venous system. There is no evidence of thrombus within the femoral, or tibial segments. The greater saphenous vein is also within normal limits. Doppler indicates normal spontaneous flow within these segments. The popliteal vein was technically difficult to visualize, due to contracture. LEFT LEG: Venous imaging reveals a patent deep venous system. There is no evidence of thrombus within the femoral, popliteal or tibial segments. The greater saphenous vein is also within normal limits. Doppler indicates normal spontaneous flow within these segments.
--- NOTE | 2018-11-10 14:29 | NUR ---
TRANSFER UPDATE THIS PATIENT IS OUT OF NETWORK AND BELONGS AT [facility] SPOKE WITH [facility] PET AMBASSADOR, MERA T: [phone]. SHE IS WORKING ON SECURING A BED MD TO MD CALL NEED TO TAKE PLACE BETWEEN PHYSICIANS [facility] MD WILL CONTACT DR LIPSCOMB
--- NOTE | 2018-11-10 14:41 | NUR ---
*-* INSURANCE *-* CLINICALS AND REVIEWS HAVE BEEN FAXED TO: [place]/ [place]: MERA VAUGHN P- [phone] [phone]...REVIEW/CLINICALS
--- NOTE | 2018-11-10 15:07 | NUR ---
NURSE NOTES:WOUND CARE NOTES:Pt presented on admission with multiple pressure injuries.Partially opened DTPI sacrum. Base of wound indurated with darker skin tone. (L)7cm x (W)8.5cm Within sacral wound at sacrococcygea area is a full thickness opening (L)1cm x (W)1.3cm with 40% yellow slough ,60% viable. No odor or exudate noted .Periwound without erythema ,fluctuance or induration. DTPI noted to medial L heel .Base of wound dark brown ,fluctuant with marginal and periwound erythema.(L)4cm x (W)3cm. DTPI noted to medial/posterior R heel.Base of wound is fluctuant with brownish discoloration with non-blanchable erythema periwound. Full thickness pressure injury R Hallux.Base of wound 75% viable ,20%yellow slough,5% necrotic area in center.Edges are dark .Periwound without induration or fluctuance.Small amt non-odorous serous exudate noted.(L)3.2cm x(W)3cm. Tx.Plan:Cleanse Sacral wound with Saline.Apply Therahoney to Sacrococcygeal wound.Apply Triad periwound. Cover with Optifoam drsg. Change every 3 days and prn. Apply Cavilon Skin Barrier to R and L heels. Cover each heel with Optifoam drsg. Change every 7 days and prn. Cleanse wound R Hallux with Saline. Apply Therahoney. Apply Cavilon Skin Barrier Periwound. Cover with Optifoam drsg.Change every 3 days and prn. APM/CHEVY Mattress overlay. Reposition at least every 2hours or as tolerated. Off-load heels with pillows.
[2018-11-10 16:00] VITALS: BP 126/96
--- NOTE | 2018-11-10 16:08 | NUR ---
DISCHARGE PLANNED IF DEEMED STABLE BY DR LIPSCOMB PATIENT WILL TRANSFER TO: [facility] [address] , [address] [address] T: [phone] FOR NURSE TO NURSE REPORT SDU BEDSIDE RN WILL NEED TO [facility] AMBULANCE TRANSPORT WITH [facility]
--- NOTE | 2018-11-10 16:36 | NUR ---
NURSE NOTES: Left message to Dr. Araya's racing secretary and handicapper. Awaiting for call back.
--- NOTE | 2018-11-10 16:39 | NUR ---
NURSE NOTES: Informed Dr. Araya regarding latest ABG result. With order to discharge patient to [facility] with bipap after blood transfusion. Charge nurse made aware.
--- NOTE | 2018-11-10 17:15 | NUR ---
NURSE NOTES: Blood transfusion of 1 PRBC started. Vital signs stable.
--- NOTE | 2018-11-10 17:15 | Consultation ---
DATE OF CONSULTATION: 11/10/2018 CONSULTING PHYSICIAN: Cody Alcazar M.D. REFERRING PHYSICIAN: Rodrick Araya M.D. REASON FOR CONSULTATION: End-stage renal disease, CHF. HISTORY OF PRESENT ILLNESS: The patient is unable to provide history. She has severe dementia, prior stroke, came with respiratory distress and was placed on BiPAP in the emergency room. The impression of the emergency room physician of a chest x-ray was congestive heart failure. The patient has end-stage renal disease, on dialysis and urgent dialysis is ordered. She has a dialysis PermCath. There is a history of CVA, right-sided weakness, and gastrostomy feedings. There are some records from prior hospitalization, which are reviewed. She has had prior episodes of hypercarbic respiratory failure. Recently, there is a history of directed. There is also a history of diabetes and recurrent UTIs. Prior to admission medication, I am unable to find an accurate medication list at this time. PAST MEDICAL HISTORY: Unavailable other than the above. REVIEW OF SYSTEMS: Unavailable other than the above. PHYSICAL EXAMINATION: GENERAL: The patient is lying in bed, on BiPAP, seen on dialysis. VITAL SIGNS: Temperature 97.7, pulse 70, respirations 27, and blood pressure 109/54. HEAD, EYES, EARS, NOSE, AND THROAT: Her eyes are closed. Oral mucosa appears moist. She is on a BiPAP. LUNGS: Bilateral rhonchi. HEART: Rhythm is regular. I hear no murmur. ABDOMEN: Soft without organomegaly. There is a gastrostomy tube. EXTREMITIES: No edema. There are right-sided contractions. NEUROLOGIC: The patient is obtunded. She has a right hemiplegia. LABORATORY DATA: Pertinent labs show white count of 11.9, hemoglobin of 6.8. Sodium is 128, potassium 4.7, BUN 87, creatinine 2.9, glucose 140. BNP 13,964. Albumin is 2.4. IMPRESSION: 1. End-stage renal disease. 2. Congestive heart failure, acute on chronic. 3. Acute respiratory failure with hypercarbia and hypoxemia. 4. COPD. 5. Diabetes. 6. History of CVA. 7. History of dysphagia and G-tube feedings. PLAN: The patient's serial dialysis for fluid removal. Her blood pressure is low and I can only provide limited fluid removal session. She has multiple comorbidities. She has been started on IV antibiotics. Her condition is guarded. Cody Alcazar M.D. DR: LILA JOB#: [id number] CC:
--- NOTE | 2018-11-10 17:30 | History and Physical Report ---
DATE OF ADMISSION: 11/09/2018 CHIEF COMPLAINT: Respiratory failure. HISTORY OF PRESENT ILLNESS: The patient is an unfortunate 83-year-old female. She has a history of end-stage renal disease and stroke. She has right-sided hemiparesis. She has a history of congestive heart failure. According to the family, she has been at [facility] since May with multiple medical problems. She apparently was started on hemodialysis in her hospital course that has been complicated by repeated bouts of infection including pneumonia. She was discharged on the day of admission here to the group home facility. She was noted to be in acute respiratory distress when she arrived at the longterm. Paramedics were called. The patient was transferred to [facility]. On evaluation here, on x-ray she had evidence of congestive heart failure versus pneumonia. She was placed on BiPAP and is now admitted for further inpatient evaluation and care. PAST MEDICAL HISTORY: As above. PAST SURGICAL HISTORY: Includes a prior history of a G-tube. CURRENT MEDICATIONS: Reconciled and reviewed. ALLERGIES: Include codeine. FAMILY HISTORY: Noncontributory. SOCIAL HISTORY: There is no known history of tobacco, ethanol, or drugs. The patient has no chest compressions but otherwise daughter wants all aggressive treatment including intubation and continued dialysis. REVIEW OF SYSTEMS: From the patient is unobtainable as she is nonverbal at baseline. PHYSICAL EXAMINATION: VITAL SIGNS: Temperature 97.7, pulse 70, respirations 27, blood pressure 109/54. GENERAL: The patient is a chronically ill-appearing female, in no apparent distress. She has severe right-sided contracture. She does respond to verbal stimuli. She opens her eyes, but she does not follow commands. HEENT: Head was normocephalic and atraumatic. NECK: Supple. HEART: Regular rate and rhythm. LUNGS: Significant for scattered rhonchi. ABDOMEN: Soft, nontender, nondistended. EXTREMITIES: Without clubbing or cyanosis. There is multiple contractures noted especially on the right side. LABORATORY DATA: White count 12, hemoglobin 6.8, hematocrit 22, platelets of 414. ABG showed a pH of 7.308 pCO2 44, pO2 of 95, bicarb 21, O2 saturation 96%. Sodium 129, potassium 4.6, BUN 83, creatinine is 2.7. Alkaline phosphatase 420. Troponin was negative. Natriuretic peptide level is 1400. X-ray results are currently pending. ASSESSMENT: This is an unfortunate 83-year-old female with a prior history of stroke, dysphagia, end-stage renal disease, hypertension, admitted with respiratory failure secondary to pulmonary edema, cannot rule out some component of pneumonia. She has anemia but no signs or symptoms of bleeding. PLAN: 1. Hemodialysis with ultrafiltration. 2. Broad-spectrum IV antibiotics. 3. Continue G-tube feeds. 4. We will monitor chest x-ray. 5. Pulmonary, Cardiology, and Renal consultations has been obtained. 6. The patient's prognosis is extremely poor. 7. The family have entertained hospice but so far they are not in agreement with hospice, they are aware of her poor prognosis. We will continue current plan of care and treatment. Rodrick Araya M.D. DR: Shay JOB#: [id number] CC:
--- NOTE | 2018-11-10 17:30 | NUR ---
NURSE NOTES: No blood transfusion reaction observed. Vital signs stable. Will continue to monitor.
--- NOTE | 2018-11-10 18:15 | Consultation ---
DATE OF CONSULTATION: 11/10/2018 PULMONARY CONSULTATION CONSULTING PHYSICIAN: Sunday Braga M.D. REFERRING PHYSICIAN: Rodrick Araya M.D. REASON FOR CONSULTATION: Respiratory failure and BiPAP management. HISTORY OF PRESENT ILLNESS: This is an 83-year-old female, presently on BiPAP. The patient presented with respiratory failure. The patient was seen in the emergency room yesterday and apparently recently discharged from the hospital. The patient is in a fdc facility and was noted to be hypoxemic. The patient is unable to give any history at this time. She was placed on BiPAP and admitted to the [facility]. She is do not resuscitate per review of the records. The patient with several months hospitalization at [facility]. The patient's care was discussed and reviewed. The patient's ER notes were reviewed. The patient's findings noted and reviewed. Currently, on the BiPAP and appears to be overall comfortable. No other overnight events noted. Service Station Equipment Mechanic notes reviewed. The patient does have history of pulmonary edema and end-stage disease. PAST MEDICAL HISTORY: Notable for congestive heart failure, end-stage renal disease, on hemodialysis, history of pleural effusion, history of respiratory failure, history of hypoxemia, and history of anemia. MEDICATIONS: Reviewed. ALLERGIES: Reviewed. SOCIAL HISTORY: Resides in a fdc facility. Currently, mostly bedbound from what is described. REVIEW OF SYSTEMS: Unobtainable due to the patient's current state. PHYSICAL EXAMINATION: GENERAL: The patient is an ill-appearing female. VITAL SIGNS: Blood pressure 137/76, respiratory rate 32, sats 100% on 30% FiO2, and temperature 97.7. HEENT: Negative. Pupils, difficulty to fully assess. The patient has a BiPAP mask in place. NECK: Supple. LUNGS: With scattered rhonchi at the the bases. moderate air entry CARDIAC: Normal S1, S2. Regular rate and rhythm. Slightly distant without murmurs, rubs, or gallops. ABDOMEN: Soft, nontender, and nondistended. EXTREMITIES: No cyanosis, clubbing, or edema. NEUROLOGIC: Somewhat obtunded. SKIN: Noted and reviewed. LABORATORY DATA: White cell count 9.8, hemoglobin 6.5, hematocrit 22, and platelets of 439,000. Blood gases reviewed, pH 7.38, pCO2 44, pO2 95, and bicarbonate 22. Chemistries noted and reviewed. BUN 87 and creatinine 2.9. The patient's albumin is 2.4. X-rays, bilateral pleural effusion and pulmonary edema. IMPRESSION: 1. Respiratory failure, acute on chronic. 2. Hyponatremia. 3. End-stage renal disease, on hemodialysis. 4. Severe protein-calorie malnutrition. 5. Evidence of noted hypoxemia. 6. Metabolic acidosis, likely renal related. 7. Anemia, possibly due to active blood loss. RECOMMENDATIONS: 1. Supportive care. 2. Hemodialysis with ultrafiltration. 3. BiPAP management. 4. Follow up arterial blood gases and remove once improved. 5. Empiric antibiotics. 6. I will follow clinically for change. 7. Nebulized therapy. 8. DVT prophylaxis as outlined and we will monitor clinically for further changes and optimization. Sunday Braga M.D. DR: THOM JOB#: [id number] CC: TIM
--- NOTE | 2018-11-10 18:21 | NUR ---
NURSE NOTES: Called [facility] ICU, Dae/RN said to call after 1930 for report. [facility] ETA is 1999.
--- NOTE | 2018-11-10 19:20 | NUR ---
NURSE NOTES: Received patient from [facility]. Patient is awake neuro x2-x3. Receiving oxygen via bipap settings 15/5 FiO2 at 30%. Patient has a G-tube with feeding currently off as she is awaiting transport to [facility]. IV site is Left Upper Arm PICC TLC that is patent and receiving 1 pack RBC. Patient has a Right chest permacath for dialysis. Bed is locked, placed in lowest position, side rails up x3, call light within reach. Will continue to monitor.
--- NOTE | 2018-11-10 19:20 | NUR ---
HAND-OFF: Report given to CORNELL Cruz. Remains on bipap.
[2018-11-10 20:00] VITALS: BP 140/78
[2018-11-10] MEDS ORDERED: Dyna-Hex 2% Top Sol 2oz TOPIC SCH (20:00)
--- NOTE | 2018-11-10 20:15 | NUR ---
NURSE NOTES: Witnessed patients heart go bradycardia on the monitor, checked on patient, patient was responsive and heart rate became stable.
--- NOTE | 2018-11-10 20:18 | NUR ---
KEYCASE ASSEMBLER Note: KEYCASE ASSEMBLER was called at 2018 by sdu, and notified MD gao. Pt transferred to at . See KEYCASE ASSEMBLER documentation form for full report.director general called for dnr/dni patient due to aloc,padma and agonal breathing,pls see director general record
--- NOTE | 2018-11-10 20:20 | NUR ---
NURSE NOTES: Patient heart rate on monitor went to bradycardia, checked on patient, she became unresponsive. COMPRESS MACHINE OPERATOR was called.
[2018-11-10] MEDS ORDERED: Tubing Blood Filter IV ONE (20:29)
[2018-11-10] MEDS ORDERED: NS 275ml ONE ×2 (20:29→21:52)
--- NOTE | 2018-11-10 20:32 | NUR ---
PRONOUNCEMENT: PHARMACY TECH called for bradycardia and ALOC. No Code. Absence of spontaneous respirations, no cardiac or breath sounds on auscultation. Pupils fixed and dilated. No carotid pulse or chest movement. Patient at 2029. Petey Gabriel notified. Family was notified at 2033
[2018-11-10] MEDS ORDERED: D5W 275ml ONE (21:52)
[2018-11-10] MEDS ORDERED: Tubing IV Secondary IV ONE (21:52)
[2018-11-11] MEDS ORDERED: Heparin Sod 1000 units/ml 10ml IV PRN (07:45)
--- NOTE | 2018-11-11 11:22 | Cardiology Report ---
APPROVED REPORT EXAM: Two-dimensional and M-mode echocardiogram with Doppler and color Doppler. INDICATION C.A.D M-Mode DIMENSIONS IVSd1.1 (0.7-1.1cm)Left Atrium (MM)2.3 (1.6-4.0cm) LVDd4.1 (3.5-5.6cm)Aortic Root3.2 (2.0-3.7cm) PWd0.8 (0.7-1.1cm)Aortic Cusp Exc.1.6 (1.5-2.0cm) IVSs1.4 cm LVDs2.2 (2.5-4.0cm) PWs1.1 cm Technically difficult study due to pt's position . Normal left ventricular chamber size, systolic function and wall motion to extent visualized. Left ventricular ejection fraction estimated to be 60%. Mild left ventricular hypertrophy by 2-D. Moderate circumferential pericardial effusion with Right Atrium collapse in diastole. Pleural effusion present . All other cardiac chamber sizes are within normal limits. Aortic valve calcification with normal cusp excursion . Mildly thickened mitral valve leaflets with normal excursion. Mild mitral annulus and aortic root calcification. Pulmonic valve not well visualized. IVC at size 1.4 cm without physiologic collapse suggestive mildly of increased RA pressure. A color flow and spectral Doppler study was performed and revealed: No aortic insufficiency . Mild mitral regurgitation. Mitral diastolic velocities suggest reduced left ventricular relaxation c/w mild LV diastolic dysfunction (Grade I ). Mild tricuspid regurgitation. Tricuspid systolic velocities suggests peak right ventricular systolic pressure of 54 mmHg,consistent with moderate pulmonary hypertension .
--- NOTE | 2018-11-11 12:07 | Discharge Summary ---
Discharge Summary Discharge Summary _ DATE OF ADMISSION: 11/09/2018 DATE OF DISCHARGE: 11/10/2018 BRIEF SUMMARY: Patient is an unfortunate 83-year-old female, with history of end-stage renal disease and stroke with right-sided hemiparesis, and a history of congestive heart failure. According to the family, patient was at [facility] since May due to multiple medical problems. She was apparently started on hemodialysis and hospital course had been complicated due to repeated bouts of infection including pneumonia. She was just discharged to the retirement on the day of admission here. She was noted to be in acute respiratory distress when she arrived at the retirement. Paramedics were then called and patient was transported to [facility]. On evaluation at the ED, patient had increased work of breathing. She was given DuoNeb treatment. Blood work showed WBC of 12, hemoglobin 6.8 and hematocrit was 22. Sodium was 129, chloride 93. BUN was elevated to 83, creatinine 2.7. Troponin was negative. EKG did not show any signs of acute injury. Chest x-ray showed pulmonary edema with large left sided effusion and cardiomegaly. BiPAP was initiated, but still with work of breathing. Blood gas revealed mild acidosis, both respiratory and metabolic. Patient was vocalizing and was responsive. She had less respiratory difficulty on BiPAP. Intubation was not indicated. She was then admitted to stepdown unit due to respiratory failure secondary to pulmonary edema, cannot rule out component of pneumonia anemia. She was started on blood transfusion transfusion. She was given broad-spectrum antibiotics. [employer] Clerk and counseling center director were consulted. Patient would need serial hemodialysis. She was given supportive care. She was continued on nebulizer treatment. She had poor prognosis. Venous duplex was negative for acute DVT. Echocardiogram showed EF of 60%. She came in with stage II pressure ulcer on the sacral and right inner foot. She was given wound care. Patient was for transfer to a contracted facility. Before transfer occurred, patient was noted to have bradycardia on the monitor. [facility] was called. Patient was no code. She continued to have agonal breathing and low heart rate. Patient eventually . 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 I have been assigned to complete a discharge summary on this account, I was not involved with the patient's management. Margarita Robles NP November 11, 2018 12:07
== END 2018-11-10 20:30 | disposition expired | DRG 291 ==
LOC: EDBD 18:02 → EMR 19:23 → 2W 20:55 → EDBEDREQ 21:14
PROC: 5A1D70Z Performance of Urinary Filtration, Intermittent, Less than 6 Hours Per Day (ICD-10-PCS; principal; 2018-11-09)
PROC: 5A1945Z Respiratory Ventilation, 24-96 Consecutive Hours (ICD-10-PCS; principal; 2018-11-09)
PROC: 30233N1 Transfusion of Nonautologous Red Blood Cells into Peripheral Vein, Percutaneous Approach (ICD-10-PCS; 2018-11-10)
DX: I13.2 Hypertensive heart and chronic kidney disease with heart failure and with stage 5 chronic kidney disease, or end stage renal disease (principal); J96.21 Acute and chronic respiratory failure with hypoxia; N18.6 End stage renal disease; E43 Unspecified severe protein-calorie malnutrition; I50.33 Acute on chronic diastolic (congestive) heart failure; J96.22 Acute and chronic respiratory failure with hypercapnia; I69.351 Hemiplegia and hemiparesis following cerebral infarction affecting right dominant side; E87.1 Hypo-osmolality and hyponatremia; E87.2 Acidosis; Z43.1 Encounter for attention to gastrostomy; D62 Acute posthemorrhagic anemia; Z68.1 Body mass index [BMI] 19.9 or less, adult; Z66 Do not resuscitate; Z88.6 Allergy status to analgesic agent; Z86.73 Personal history of transient ischemic attack (TIA), and cerebral infarction without residual deficits; R13.10 Dysphagia, unspecified; L89.152 Pressure ulcer of sacral region, stage 2; L89.892 Pressure ulcer of other site, stage 2; Z99.2 Dependence on renal dialysis
CPT/HCPCS: 36415; 36600; 71045; 80053; 82550; 82803; 83605; 83735; 83880; 84484; 85007; 85025; 85610; 85730; 86850; 86900; 86901; 86920; 87040; 87081; 93005; 93306; 93970; 94640; 94660; 94664; 96365; 96366; 99291; J7620